=== PATIENT | female | born 1970 | race Hispanic/Latino ===

== ENCOUNTER 2021-09-28 19:41 | Emergency (ER) | payer BC ==
[~2021-09-28] VITALS: Ht 165.1 cm; Wt 83.5 kg
[2021-09-28 20:40] LABS: BASOPHILS % (AUTO) 0.4 % (0.0-5.0); EOSINOPHILS % (AUTO) 1.1 % (0.0-8.0); HEMATOCRIT 42.3 % (36-48); LYMPHOCYTES % (AUTO) 29.2 % (21.0-51.0); MEAN CORPUSCULAR HEMOGLOBIN 29.4 pg (27.0-33.0); MEAN CORPUSCULAR HGB CONC 33.3 g/dL (32.0-36.0); MEAN CORPUSCULAR VOLUME 88.1 fL (79-99); MONOCYTES % (AUTO) 8.5 % (3.0-13.0); NEUTROPHILS % (AUTO) 60.1 % (40.0-77.0); PLATELET COUNT (AUTO) 218 K/uL (130-400); RED CELL DISTRIBUTION WIDTH 12.1 % (11.0-15.5); WHITE BLOOD COUNT (AUTO) 7.4 K/uL (4.8-10.8)
[2021-09-28 20:54] LABS: CREATININE 0.7 mg/dL (0.5-1.5); POTASSIUM 3.8 mmol/L (3.5-5.1)
[2021-09-28 20:58] LABS: ALBUMIN 3.9 g/dL (3.5-5.0); BILIRUBIN,TOTAL 0.6 mg/dL (0.2-1.0); TOTAL PROTEIN, SERUM 7.1 g/dL (6.0-8.3)
[2021-09-28] MEDS ORDERED: ONDANSETRON 4MG INJ IVP ONE (21:00)
[2021-09-28] MEDS ORDERED: MECLIZINE HCL 25 MG TABLET PO ONE (21:00)
[2021-09-28] MEDS ORDERED: 0.9%NACL 1000ML 1,000 ML IV ONE (21:00)
[2021-09-28] MEDS ORDERED: ONDA22I PO (22:47)
[2021-09-28] MEDS ORDERED: MECL-226 PO (22:47)
[2021-09-28 22:50] VITALS: BP 151/89
== END 2021-09-28 23:00 | disposition home or self-care (01) ==
LOC: EDH 19:41
DX: R42 Dizziness and giddiness (principal); R11.2 Nausea with vomiting, unspecified; R51.9 Headache, unspecified; E03.9 Hypothyroidism, unspecified; F41.9 Anxiety disorder, unspecified; I10 Essential (primary) hypertension; Z90.710 Acquired absence of both cervix and uterus
CPT/HCPCS: 36415; 71045; 80053; 84484; 85025; 93005 ×2; 96361; 96374; 99284; J2405; J7030

== ENCOUNTER 2024-01-11 04:03 | Emergency (ER) | payer OTHER, BC ==
[~2024-01-11] VITALS: Ht 162.6 cm; Wt 75.3 kg
[~2024-01-11 04:03] MED LIST: MECL-226 PO; ONDA22I PO
[2024-01-11 04:25] LABS: APPEARANCE,URINE CLOUDY (CLEAR); BILIRUBIN,URINE SMALL mg/dL (NEGATIVE); COLOR,URINE RED (YELLOW); GLUCOSE, URINE (UA) 100 mg/dL (NEGATIVE); KETONES,URINE 40 mg/dL (NEGATIVE); LEUKOCYTE ESTERASE ,URINE LARGE Leu/uL (NEGATIVE); NITRATE,URINE POSITIVE (NEGATIVE); OCCULT BLOOD,URINE LARGE (NEGATIVE); PH,URINE 6.5 (5.0-8.0); PROTEIN,URINE >=300 mg/dL (NEGATIVE); UROBILINOGEN,URINE >=8.0 mg/dL (0.2-1.0)
[2024-01-11 04:26] LABS: ADD UA MICROSCOPIC YES
[2024-01-11 04:36] LABS: BACTERIA,URINE None Seen /HPF (None Seen); RBC,URINE TNTC /HPF (0-1)
[2024-01-11 04:37] LABS: SQUAMOUS EPITHELIAL CELL,UR None Seen /HPF (0-2)
[2024-01-11 04:44] VITALS: BP 146/103; PULSE 95; RESP 18
[2024-01-11 04:49] LABS: BASOPHILS # (AUTO) 0.02 K/uL (0.00-0.20); BASOPHILS % (AUTO) 0.2 % (0.0-5.0); EOSINOPHILS # (AUTO) 0.21 K/uL (0.00-0.70); EOSINOPHILS % (AUTO) 2.6 % (0.0-8.0); HEMATOCRIT 38.9 % (36-48); IMMATURE GRANULOCYTE ABSOLUTE 0.03 K/uL (0-1); LYMPHOCYTES # (AUTO) 1.9 K/uL (1.0-4.8); LYMPHOCYTES % (AUTO) 23.6 % (21.0-51.0); MEAN CORPUSCULAR HEMOGLOBIN 31.4 pg (27.0-33.0); MEAN CORPUSCULAR HGB CONC 35.5 g/dL (32.0-36.0); MEAN CORPUSCULAR VOLUME 88.4 fL (79-99); MONOCYTES # (AUTO) 0.5 K/uL (0.1-1.0); MONOCYTES % (AUTO) 6.5 % (3.0-13.0); NEUTROPHILS # (AUTO) 5.5 K/uL (1.8-7.7); NEUTROPHILS % (AUTO) 66.7 % (40.0-77.0); PLATELET COUNT (AUTO) 263 K/uL (130-400); RED CELL DISTRIBUTION WIDTH 11.9 % (11.0-15.5); WHITE BLOOD COUNT (AUTO) 8.2 K/uL (4.8-10.8)
[2024-01-11 04:57] LABS: CREATININE 0.8 mg/dL (0.5-1.0); POTASSIUM 3.5 mmol/L (3.5-5.1)
[2024-01-11 05:09] LABS: ALBUMIN 3.5 g/dL (3.5-5.0); BILIRUBIN,TOTAL 0.4 mg/dL (0.2-1.0)
[2024-01-11] MEDS ORDERED: SULF1TAB42 PO (05:11)
[2024-01-11] MEDS: CEFTRIAXONE 1G VIAL IVPB ONE (05:30)
== END 2024-01-11 05:41 | disposition home or self-care (01) ==
LOC: EDH 04:03
DX: N30.01 Acute cystitis with hematuria (principal); I10 Essential (primary) hypertension; E11.9 Type 2 diabetes mellitus without complications; E78.00 Pure hypercholesterolemia, unspecified; Z90.710 Acquired absence of both cervix and uterus; Z79.899 Other long term (current) drug therapy
CPT/HCPCS: 99283; 96374; 80053; 83690; 85025; 87077; 87088; 87186; 81001; 36415; J0696